=== PATIENT | female | born 1980 | race African-American/Black ===

== ENCOUNTER 2022-06-02 03:32 | Emergency (ER) | payer OTHER ==
[~2022-06-02] VITALS: Ht 167.6 cm; Wt 163.3 kg
[2022-06-02 04:14] VITALS: BP 161/113
[2022-06-02] MEDS ORDERED: predniSONE 20 MG TABLET ONE (04:53)
[2022-06-02] MEDS ORDERED: predniSONE 20 MG TABLET PO ONE (05:00)
[2022-06-02] MEDS ORDERED: ALBUTEROL FS 2.5 MG/3 ML VIAL.NEB CONTNEB ONE (05:00)
[2022-06-02] MEDS ORDERED: IPRATROPIUM NEB FS 0.5 MG/2.5 ML AMPUL.NEB NEB ONE (05:00)
[2022-06-02] MEDS ORDERED: ALBUTEROL FS 2.5 MG/3 ML VIAL.NEB ONE (05:02)
[2022-06-02] MEDS ORDERED: IPRATROPIUM NEB FS 0.5 MG/2.5 ML AMPUL.NEB ONE (05:03)
[2022-06-02] MEDS ORDERED: PRED20TA PO (05:49)
== END 2022-06-02 05:54 | disposition home or self-care (01) ==
LOC: ER 03:34
DX: J02.9 Acute pharyngitis, unspecified (principal); J06.9 Acute upper respiratory infection, unspecified; Z20.822 Contact with and (suspected) exposure to COVID-19; Z90.49 Acquired absence of other specified parts of digestive tract
CPT/HCPCS: 99283; 87426; 94640; J7512; C9803